=== PATIENT | male | born 1955 | race Caucasian/White ===

== ENCOUNTER 2016-08-23 19:22 | Emergency (ER) | payer OTHER ==
[2016-08-23] MEDS ORDERED: cloNIDine HCL 0.1 MG TABLET PO ONE ×2 (19:53→20:31)
--- NOTE | 2016-08-23 20:31 | ER PHYSICIAN DOCUMENTATION ---
Physician Documentation [facility] Name:Conrado Ram Age:60 yrs Sex:Male :1955 Arrival Date:08/23/2016 Time:19:22 Bed1 Private MD: Luciano Garduno Disposition: 08/23/16 20:15 Discharged to Home/Self Care. Impression: Hypertension - Urgency. - Condition is Good. - Discharge Instructions: HYPERTENSION, Established, Out of Control. - Medical Reconciliation form form. - Follow up: [facility]; When: 1 - 2 days; Reason: Continuance of care. - Problem is new. - Symptoms have improved. HPI: 08/23 20:00 This 60 yrs old Male presents to ER via Private Vehicle with complaints of jm High Blood Pressure. 20:00 The patient has elevated blood pressure and discovered this at home. Onset: The jm symptom(s)/episode began/occurred today. Associated signs and symptoms: The patient has no apparent associated signs or symptoms. Pt feels anxious b/c of elevated BP and felt some fluttering in his chest. He came to get evaluated. . Historical: - Allergies: Amoxicillin; - Home Meds: 1. carvedilol oral 2. Simvastatin Oral - PMHx: CAD; Hypertension; - PSHx: Tonsillectomy; stent; - Tetanus: < 10 years. - Ebola Screening: : Patient denies exposure to infectious person. Patient denies travel to an Ebola-affected area in the 21 days before illness onset. . - Immunization history: Flu Vaccine < 1 year. - Social history: Smoking status: Patient states was never smoker of tobacco. Patient/guardian denies using alcohol. - Code Status:: Full code. ROS: 20:00 Constitutional: Negative for chills, fatigue, fever, malaise. jm 20:00 Cardiovascular: Negative for chest pain, orthopnea, palpitations, acute changes. 20:00 Respiratory: Negative for cough, shortness of breath. 20:00 Neuro: Negative for dizziness, syncope, weakness. Exam: 20:00 Constitutional: The patient appears alert, awake, comfortable. jm 20:00 Eyes: Periorbital structures: appear normal, Extraocular movements: no acute changes. 20:00 Cardiovascular: Rate: normal, Rhythm: regular. 20:00 Respiratory: Respirations: normal, Breath sounds: are normal. 20:00 Neuro: Mentation: is normal, Memory: is normal. 20:00 Psych: Behavior/mood is pleasant, cooperative, anxious, Affect is calm. Vital Signs: 19:28 BP 159 / 98; Pulse 57; Resp 16; Temp 98.3; Pulse Ox 95% ; Weight 77.11 kg; Height 5 ft. jt 11 in. (180.34 cm); Pain 0/10; 20:12 BP 145 / 89; Pulse 64; Resp 16; Pulse Ox 96% on R/A; Pain 0/10; lb 20:29 BP 125 / 89; Pulse 60; Resp 16; Pain 0/10; lb 19:28 Body Mass Index 23.71 (77.11 kg, 180.34 cm) jt MDM: 19:48 Patient medically screened. 21:32 EKG attached lb 08/24 09:17 Differential diagnosis: hypertensive crisis. Data reviewed: vital signs, nurses notes, EKG, and as a result, I will discharge patient. Test interpretation: by ED physician or midlevel provider: ECG. Counseling: I had a detailed discussion with the patient and/or guardian regarding: the historical points, exam findings, and any diagnostic results supporting the discharge/admit diagnosis, the need for outpatient follow up, with the patient's primary care provider. ECG:. Medication response: clonidine reduced the patient's elevated blood pressure to within acceptable limits. ED course: Pt given a few clonidine for home since it worked so well here. He can talk to his PCP about starting another agent next week. . 08/23 19:39 Order name: EKG - 12 Lead; Complete Time: 19:50 lb EC:17 Rhythm is regular. QRS [place] is Normal. IA interval is normal. QRS interval is normal. QT interval is normal. No Q waves. T waves are Normal. No ST changes noted. Dispensed Medications: 08/23 19:50 Drug: cloNIDine 0.1 mg; Route: PO; lb 20:12 Follow up: Response: Blood pressure is lowered lb 20:30 Drug: cloNIDine 0.1 mg; Route: PO; lb 20:30 Follow up: Response: Pharmacy closed - take home med pack lb Signatures: Luciano Nielson MD MD jm Bollock, Lynda lb
--- NOTE | 2016-08-23 20:31 | ER NURSING DOCUMENTATION ---
Nurse's Notes [facility] Name:Conrado Ram Age:60 yrs Sex:Male :1955 Arrival Date:08/23/2016 Time:19:22 Bed1 Private MD: Diagnosis:Hypertension-Urgency Presentation: 08/23 19:35 Transition of care: Home. rs 19:35 Acuity: JOE 3 rs 19:35 Method Of Arrival: Private Vehicle rs 19:36 Presenting complaint:. Notified ED Physician of [place] notified. lb 19:36 Acuity: JOE 3 lb 19:50 Presenting complaint: Patient states: cough for 1 week with elevated bp for a few days. lb had mild headache, none at present. felt an "adrenaline montes" in his chest. Triage Assessment: 19:53 General: Appears in no apparent distress, Behavior is cooperative, pleasant. Pain: lb Denies pain. Historical: - Allergies: Amoxicillin; - Home Meds: 1. carvedilol oral 2. Simvastatin Oral - PMHx: CAD; Hypertension; - PSHx: Tonsillectomy; stent; - Tetanus: < 10 years. - Ebola Screening: : Patient denies exposure to infectious person. Patient denies travel to an Ebola-affected area in the 21 days before illness onset. . - Immunization history: Flu Vaccine < 1 year. - Social history: Smoking status: Patient states was never smoker of tobacco. Patient/guardian denies using alcohol. - Code Status:: Full code. Screenin:54 Infectious Disease Risk None. Abuse screen: Denies threats or abuse. Denies injuries lb from another. Nutritional screening: No deficits noted. Assessment: 19:53 See Triage Assessment done by same RN. lb Vital Signs: 19:28 BP 159 / 98; Pulse 57; Resp 16; Temp 98.3; Pulse Ox 95% ; Weight 77.11 kg; Height 5 ft. jt 11 in. (180.34 cm); Pain 0/10; 20:12 BP 145 / 89; Pulse 64; Resp 16; Pulse Ox 96% on R/A; Pain 0/10; lb 20:29 BP 125 / 89; Pulse 60; Resp 16; Pain 0/10; lb 19:28 Body Mass Index 23.71 (77.11 kg, 180.34 cm) jt ED Course: 19:22 Patient arrived in ED. em3 19:35 Noelle Webb, RN is Primary Nurse. rs 19:39 Triage completed. lb 19:48 Luciano Nielson MD is Attending Physician. laura 19:53 EKG done per protocol. lb 19:54 Valuables Remains with patient. lb 20:15 [facility] is Referral Physician. jm 21:32 EKG attached lb Administered Medications: 19:50 Drug: cloNIDine 0.1 mg; Route: PO; lb 20:12 Follow up: Response: Blood pressure is lowered lb 20:30 Drug: cloNIDine 0.1 mg; Route: PO; lb 20:30 Follow up: Response: Pharmacy closed - take home med pack lb Outcome: 20:15 Discharge ordered by . laura 20:29 Discharged to home ambulatory. lb 20:29 Condition: improved 20:29 Discharge Assessment: Patient awake, alert and oriented x 3. No cognitive and/or functional deficits noted. Patient verbalized understanding of disposition instructions. 20:29 Instructed on discharge instructions, follow up and referral plans. 20:30 Patient left the ED. lb Signatures: Noelle Webb RN RN Luciano Sorto MD MD jm Meiklejohn, Eric em3 Alena Rodriguez Lynda lb
== END 2016-08-23 20:31 | disposition home or self-care (01) ==
LOC: ER 19:22
DX: I16.0 Hypertensive urgency (principal); Z79.899 Other long term (current) drug therapy
CPT/HCPCS: 99283